=== PATIENT | male | born 1965 | race African-American/Black ===

== ENCOUNTER 2022-06-12 02:03 | Emergency (ER) | payer MEDICAID ==
[~2022-06-12] VITALS: Ht 177.8 cm; Wt 91.0 kg
[2022-06-12 03:42] LABS: CHLORIDE 103 mEq/L (98-107)
[2022-06-12 03:52] LABS: BASOPHILS % 0.5 % (0.0-2.0); EOSINOPHILS % 2.2 % (0.0-5.0); HEMATOCRIT. 35.2 % (42.0-52.0); HEMOGLOBIN. 11.4 g/dL (14.0-18.0); LYMPHOCYTES % 31.4 % (20.0-50.0); MEAN CORPUSCULAR HEMOGLOBIN 27.8 pg (28.0-32.0); MEAN CORPUSCULAR VOLUME 85.7 fL (80.0-94.0); MEAN PLATELET VOLUME 9.6 fl (7.4-10.4); MONOCYTES % 9.2 % (2.0-8.0); NEUTROPHILS % 56.7 % (40.0-76.0); PLATELET 220 x1000/uL (130-400)
[2022-06-12] MEDS ORDERED: INSULIN REGULAR (HUMULIN R) 300UNITS/3ML VIAL SUBCUT ONE (05:30)
[2022-06-12 06:21] LABS: CLARITY URINE TURBID (CLEAR); COLOR URINE RED (YELLOW); KETONES URINE NEGATIVE (NEGATIVE); LEUKOCYTE ESTERASE URINE 2+ (NEGATIVE); NITRITE URINE POSITIVE (NEGATIVE); OCCULT BLOOD URINE 2+ (NEGATIVE); PH URINE 5.5 (4.5-8.0); PROTEIN URINE 3+ (NEGATIVE); SPECIFIC GRAVITY URINE 1.024 (1.005-1.030); UROBILINOGEN URINE 0.2 E.U./dL (0.2-1.0)
[2022-06-12] MEDS ORDERED: CEPH250C2 MT (07:54)
[2022-06-12 09:00] VITALS: BP 142/89
== END 2022-06-12 09:41 | disposition home or self-care (01) ==
LOC: ER 02:03
DX: R31.9 Hematuria, unspecified (principal); E11.65 Type 2 diabetes mellitus with hyperglycemia
CPT/HCPCS: 36415; 80053; 81003; 82962; 85025; 86850; 86900; 86901; 87086; 96372; 99285; A4217; J1815; Z7610; A4315

== ENCOUNTER 2022-10-13 14:07 | Emergency (ER) | payer MEDICAID ==
[~2022-10-13] VITALS: Ht 182.9 cm; Wt 99.0 kg
[~2022-10-13 14:07] MED LIST: CEPH250C2 MT
[2022-10-13 14:30] VITALS: BP 179/92; PULSE 108; RESP 18; TEMP 98.3; O2SAT 100
[2022-10-13] MEDS ORDERED: DOXY150T5 MT ×2 (16:13→16:25)
== END 2022-10-13 16:36 | disposition home or self-care (01) ==
LOC: ER 14:07
DX: S80.812A Abrasion, left lower leg, initial encounter (principal); X58.XXXA Exposure to other specified factors, initial encounter; Y93.89 Activity, other specified; Y92.89 Other specified places as the place of occurrence of the external cause; Y99.8 Other external cause status
CPT/HCPCS: 99283